=== PATIENT | female | born 1990 | race Caucasian/White ===

== ENCOUNTER 2019-03-08 18:58 | Emergency (ER) | payer OTHER ==
[~2019-03-08] VITALS: Ht 167.6 cm; Wt 63.0 kg
[2019-03-08 19:10] VITALS: Ht 167.6 cm; Wt 63.0 kg
[2019-03-08 22:01] VITALS: BP 119/79; PULSE 79; RESP 16
== END 2019-03-08 22:01 | disposition left against medical advice (07) ==
LOC: FTE 18:58
DX: R10.9 Unspecified abdominal pain (principal)
CPT/HCPCS: 81003; 81025; 87086; 99283